=== PATIENT | male | born 1965 | race African-American/Black ===

== ENCOUNTER 2017-05-20 08:33 | Emergency (ER) | payer MEDICAID, OTHER ==
[~2017-05-20] VITALS: Ht 175.3 cm; Wt 111.0 kg
[~2017-05-20 08:33] MED LIST: TRUVTAB2 PO
[2017-05-20 08:35] VITALS: BP 164/112; PULSE 120; RESP 18; TEMP 97.8; O2SAT 95
[2017-05-20] MEDS ORDERED: SODIUM CHLOR 0.9% 1000 ML INJ 1,000 ML IV ONE (08:45)
[2017-05-20 09:10] LABS: BASOPHIL # 0.2 TH/MM3 (0-0.2); BASOPHIL % 2.4 % (0.0-2.0); EOSINOPHIL # 0.1 TH/MM3 (0-0.4); EOSINOPHIL % 1.2 % (0.0-4.0); HEMOGLOBIN 14.3 GM/DL (13.0-17.0); LYMPH % 18.4 % (9.0-44.0); LYMPHOCYTE # 1.3 TH/MM3 (1.0-4.8); MEAN CELL VOLUME 91.3 FL (80.0-100.0); MEAN CORPUSCULAR HEMOGLOBIN 29.8 PG (27.0-34.0); MEAN CORPUSCULAR HGB CONC 32.6 % (32.0-36.0); MEAN PLATELET VOLUME 8.2 FL (7.0-11.0); MONOCYTE # 0.5 TH/MM3 (0-0.9); PLATELET COUNT 186 TH/MM3 (150-450); RED BLOOD COUNT 4.82 MIL/MM3 (4.50-5.90); RED CELL DISTRIBUTION WIDTH 14.7 % (11.6-17.2); WHITE BLOOD COUNT 7.1 TH/MM3 (4.0-11.0)
[2017-05-20] MEDS ORDERED: AMBI5TAB PO (09:13)
[2017-05-20] MEDS ORDERED: HYDR-3583 PO (09:13)
[2017-05-20] MEDS ORDERED: LORA2TAB7 PO (09:13)
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
[2017-05-20 09:49] LABS: CALCIUM 8.2 MG/DL (8.5-10.1)
[2017-05-20 09:50] LABS: ALBUMIN 3.6 GM/DL (3.4-5.0); BICARBONATE 23.3 MEQ/L (21.0-32.0); GLUCOSE,RANDOM 174 MG/DL (74-106)
[2017-05-20 09:53] LABS: ALT (GPT) 33 U/L (12-78); GLOMERULAR FILTRATION RATE 70 ML/MIN (>89)
[2017-05-20 09:54] LABS: AST (GOT) 39 U/L (15-37)
[2017-05-20 09:55] LABS: CHLORIDE 107 MEQ/L (98-107); SODIUM (NA) 141 MEQ/L (136-145); TOTAL BILIRUBIN ADULT 0.6 MG/DL (0.2-1.0); TOTAL PROTEIN 8.5 GM/DL (6.4-8.2)
[2017-05-20 09:56] LABS: ALKALINE PHOSPHATASE 147 U/L (45-117)
[2017-05-20 09:59] LABS: BLOOD UREA NITROGEN 10 MG/DL (7-18)
[2017-05-20 10:11] VITALS: BP 139/101; PULSE 81; RESP 16; O2SAT 98
== END 2017-05-20 10:56 | disposition home or self-care (01) ==
LOC: PHED 08:33
DX: F32.9 Major depressive disorder, single episode, unspecified (principal); F41.9 Anxiety disorder, unspecified; E11.9 Type 2 diabetes mellitus without complications; I10 Essential (primary) hypertension; F17.200 Nicotine dependence, unspecified, uncomplicated; Z79.899 Other long term (current) drug therapy; Z21 Asymptomatic human immunodeficiency virus [HIV] infection status
CPT/HCPCS: 80053; 80307; 85025; 96360; 99284; J7030